=== PATIENT | female | born 1960 | race Caucasian/White ===

== ENCOUNTER 2025-10-03 15:14 | Outpatient (CLI) | payer MEDICARE, SELFPAY ==
--- NOTE | 2025-10-03 | LES_PTH ---
PATIENT: ALBERT EUBANKS LOC: [facility] U#:[id number] AGE/SX: 65/F ROOM: RE10/03/[address]: Dr. Galdino Tony MD : [id number] BED: DIS: 10/03/2025 SPEC #: [id number] RECD: 10/03/25 15:05 STATUS: ASHANTI AMBREEN #: [id number] [facility]: 10/03/25 00:[address]: Galdino Tony DEPT: SURGICAL PATHOLOGY RECD BY: Andrew Baires Tissues: A - Eyelid, NOS Procedures: Surgery Specimen Level IV HEADER OPERATION: Left nasal canthus lesion PRE-OP DIAGNOSIS: Lesion present x 1 year slowly enlarging TISSUE SUBMITTED: A- Left nasal canthus lesion MICROSCOPIC DIAGNOSIS A. Skin, left nasal canthus, lesion, excision: - Benign cyst consistent with eccrine hidrocystoma. MICROSCOPIC DESCRIPTION Slides are reviewed. GROSS DESCRIPTION A. Received in formalin labeled with the patient's name and date of . Designated as left nasal canthus is a 0.6 x 0.3 x 0.1 cm villa-white to light brown irregular tissue fragment. Entirely submitted in 1 cassette. [place] [id number]
== END 2025-10-03 23:59 | disposition home or self-care (01) ==
PROVIDERS: Referring Provider Ophthalmology; Visit Provider Ophthalmology
DX: D23.122 Other benign neoplasm of skin of left lower eyelid, including canthus (principal)
CPT/HCPCS: 88305